=== PATIENT | female | born 1960 | race Caucasian/White ===

== ENCOUNTER → 2024-07-22 | Day surgery (SDC) | payer BC ==
[~2024-07-22] MED LIST: ACETAMINOPHEN 1000 MG/100 ML 100 ML IV ONE; ACETAMINOPHEN 1000 MG/100 ML IV PRN; ALENDRONAT70 MG/75 M; ALENDRONATE SOD70 MG PO; AMLODIPINE BESYL5 MG PO; ASPIRIN 325 MG TAB PO SCH; ASPIRIN81 MG PO; BUPIVACAINE/EPI 0.5% 30ML SDV-MPF INJ ONE; CAL PO; CELEBREX200 MG PO; CELECOXIB 100 MG CAP PO SCH; DIPHENHYDRAMINE HCL INJ 50 MG/ML VIAL IV PRN; DOCUSATE SODIUM 100 MG CAP PO PRN; FAMOTIDINE 20 MG/2 ML VIAL IV ONE; FENTANYL CITRATE/PF 100MCG/2 ML INJ ONE; HYDROCODONE/APAP 5MG-325MG TAB PO PRN; LACTATED RINGER'S 1,000 ML ONE; LIDOCAINE HCL 2% LOCAL INJ 5 ML SDV VIAL INJ ONE; LIPITOR20 MG PO; MAG PO; MIDAZOLAM HCL 2 MG/2 ML VIAL ONE; MONTELUKAST SOD10 MG PO; MULTI-VITAMIN1 EACH PO; NEURONTIN300 MG PO; ONDANSETRON HCL INJ 2MG/ML 2ML 2 MG/ML VIAL IV PRN; ONDANSETRON HCL INJ 2MG/ML 2ML 2 MG/ML VIAL ONE; PANTOPRAZOLE SO40 MG PO; PROPOFOL IV EMULSION 10 MG/ML 20 ML VIAL ONE; ROPIVACAINE/EPI/CLONIDINE/KET 50 ML SYRINGE INJ ONE; SEVOFLURANE INHAL SOLN 250 ML PEN BTL ONE; SODIUM CHLORIDE 0.9% 1000ML 1,000 ML IV SCH; TELMISARTAN-HC1 EACH PO; TIZANIDINE HCL4 M1 PO; VITAMIN B650 M1 PO; WELLBUTRIN XL300 MG PO; ZINC PO; [UNRECOGNIZED DRUG - OTHER] PO
[2024-07-22] MEDS: LACTATED RINGER'S 1,000 ML ONE (05:55)
[2024-07-22] MEDS: CEFAZOLIN SODIUM 2 GM ONE (06:27)
[2024-07-22] MEDS: DEXAMETHASONE SOD PHOS 10 MG/1 ML VIAL ONE (06:27)
[2024-07-22] MEDS: CELECOXIB 200 MG CAP ONE (06:27)
[2024-07-22] MEDS: GABAPENTIN 300 MG CAP ONE (06:27)
[2024-07-22] MEDS: HYDROCODONE/APAP 7.5MG-325MG 1 EA TAB PO PRN (09:26)
[2024-07-22 12:00] VITALS: BP 125/78; PULSE 85; RESP 16; O2SAT 97
== END | disposition home health service (06) ==
LOC: OR 05:37
PROVIDERS: ATTEND Specialist
DX: M17.11 Unilateral primary osteoarthritis, right knee (principal); M25.761 Osteophyte, right knee; I10 Essential (primary) hypertension; E78.00 Pure hypercholesterolemia, unspecified; K21.9 Gastro-esophageal reflux disease without esophagitis; N20.0 Calculus of kidney; F41.9 Anxiety disorder, unspecified; F17.210 Nicotine dependence, cigarettes, uncomplicated; Z88.2 Allergy status to sulfonamides; Z79.82 Long term (current) use of aspirin; Z79.899 Other long term (current) drug therapy
CPT/HCPCS: 27447; 73560; 86850; 86900; 97110; 97116; 97161; 97530; C1713 ×2; C1776 ×2; J0131; J1100; J1308; J2003; J2250; J2405; J2704; J3010; J7121

== ENCOUNTER 2024-12-02 05:27 | Observation (INO) | payer BC ==
[~2024-12-02] VITALS: Ht 152.4 cm; Wt 69.9 kg
[~2024-12-02 05:27] MED LIST changes: -ACETAMINOPHEN 1000 MG/100 ML 100 ML IV ONE; -ACETAMINOPHEN 1000 MG/100 ML IV PRN; -ASPIRIN 325 MG TAB PO SCH; -BUPIVACAINE/EPI 0.5% 30ML SDV-MPF INJ ONE; -CELECOXIB 100 MG CAP PO SCH; -DIPHENHYDRAMINE HCL INJ 50 MG/ML VIAL IV PRN; -DOCUSATE SODIUM 100 MG CAP PO PRN; -FAMOTIDINE 20 MG/2 ML VIAL IV ONE; -FENTANYL CITRATE/PF 100MCG/2 ML INJ ONE; -HYDROCODONE/APAP 5MG-325MG TAB PO PRN; -LACTATED RINGER'S 1,000 ML ONE; -LIDOCAINE HCL 2% LOCAL INJ 5 ML SDV VIAL INJ ONE; -MIDAZOLAM HCL 2 MG/2 ML VIAL ONE; -ONDANSETRON HCL INJ 2MG/ML 2ML 2 MG/ML VIAL IV PRN; -ONDANSETRON HCL INJ 2MG/ML 2ML 2 MG/ML VIAL ONE; -PROPOFOL IV EMULSION 10 MG/ML 20 ML VIAL ONE; -ROPIVACAINE/EPI/CLONIDINE/KET 50 ML SYRINGE INJ ONE; -SEVOFLURANE INHAL SOLN 250 ML PEN BTL ONE; -SODIUM CHLORIDE 0.9% 1000ML 1,000 ML IV SCH
[2024-12-02] MEDS ORDERED: PROPOFOL IV EMULSION 10 MG/ML 20 ML VIAL ONE (07:22)
[2024-12-02] MEDS ORDERED: FENTANYL CITRATE/PF 100MCG/2 ML INJ ONE ×2 (07:22→08:09)
[2024-12-02] MEDS ORDERED: SEVOFLURANE INHAL SOLN 250 ML PEN BTL ONE (07:22)
[2024-12-02] MEDS ORDERED: LIDOCAINE HCL 2% LOCAL INJ 5 ML SDV VIAL INJ ONE (07:22)
[2024-12-02] MEDS ORDERED: ACETAMINOPHEN 1000 MG/100 ML 100 ML IV ONE (07:22)
[2024-12-02] MEDS ORDERED: MIDAZOLAM HCL 2 MG/2 ML VIAL ONE (08:09)
[2024-12-02] MEDS ORDERED: FAMOTIDINE 20 MG/2 ML VIAL IV ONE (08:22)
[2024-12-02] MEDS ORDERED: ONDANSETRON HCL INJ 2MG/ML 2ML 2 MG/ML VIAL ONE (08:22)
[2024-12-02] MEDS ORDERED: ONDANSETRON HCL INJ 2MG/ML 2ML 2 MG/ML VIAL IV PRN (09:30)
[2024-12-02] MEDS ORDERED: DIPHENHYDRAMINE HCL INJ 50 MG/ML VIAL IV PRN (09:30)
[2024-12-02] MEDS ORDERED: DOCUSATE SODIUM 100 MG CAP PO PRN (09:30)
[2024-12-02] MEDS: FENTANYL CITRATE/PF 100MCG/2 ML INJ ONE (10:06)
[2024-12-02] MEDS ORDERED: LACTATED RINGER'S 1,000 ML ONE (13:21)
[2024-12-02] MEDS: CEFAZOLIN SODIUM 2 GM ONE (17:41)
[2024-12-02] MEDS: GABAPENTIN 300 MG CAP ONE (17:42)
[2024-12-02] MEDS: DEXAMETHASONE SOD PHOS 10 MG/1 ML VIAL ONE (17:42)
[2024-12-02] MEDS: CELECOXIB 200 MG CAP ONE (17:42)
[2024-12-02] MEDS: LACTATED RINGER'S 1,000 ML ONE (17:42)
[2024-12-02] MEDS: ROPIVACAINE 246.25 MG, EPINEPHRINE HCL 1:1000 1ML 0.5 MG, CLONIDINE HCL 0.08 MG, KETORO... INJ ONE (17:43)
[2024-12-02 17:44] VITALS: BP 116/56; PULSE 97; RESP 20; TEMP 98; O2SAT 97
[2024-12-02 17:48] VITALS: BP 116/56; PULSE 97; RESP 20; TEMP 98; O2SAT 97
[2024-12-02] MEDS: SODIUM CHLORIDE 0.9% 1000ML 1,000 ML IV SCH (18:13)
[2024-12-02] MEDS: ASPIRIN 325 MG TAB PO SCH (18:13)
[2024-12-02] MEDS: CELECOXIB 100 MG CAP PO SCH (18:14)
[2024-12-02 20:00] VITALS: BP 101/59; PULSE 88; RESP 18; TEMP 98.1; O2SAT 98
[2024-12-02] MEDS: HYDROCODONE/APAP 5MG-325MG TAB PO PRN (20:47)
[2024-12-03 00:25] VITALS: BP 115/67; PULSE 79; RESP 18; TEMP 98.1; O2SAT 96
[2024-12-03 04:19] VITALS: BP 116/68; RESP 20; TEMP 97.6; O2SAT 96
[2024-12-03] MEDS: GABAPENTIN 300 MG CAP PO SCH (04:48)
[2024-12-03] MEDS ORDERED: ASPIRIN81 MG PO (07:41)
[2024-12-03 08:06] VITALS: PULSE 84; RESP 18; O2SAT 97
[2024-12-03 08:23] VITALS: BP 120/64; PULSE 81; RESP 18; TEMP 97.7; O2SAT 98
[2024-12-03 08:25] VITALS: BP 120/64; PULSE 81; RESP 18; TEMP 97.7; O2SAT 98
[2024-12-03] MEDS: BUPROPION HCL 150 MG TABCR PO SCH (09:00)
[2024-12-03] MEDS: MONTELUKAST SODIUM 10 MG TAB PO SCH (09:17)
[2024-12-03] MEDS ORDERED: ACETAMINOPHEN 1000 MG/100 ML IV PRN (09:30)
[2024-12-03] MEDS: HYDROCODONE/APAP 7.5MG-325MG 1 EA TAB PO PRN (09:51)
[2024-12-03] MEDS ORDERED: ATORVASTATIN 20 MG TAB PO SCH (21:00)
[2024-12-03] MEDS ORDERED: PANTOPRAZOLE SOD 40 MG TABEC PO SCH (21:00)
== END 2024-12-03 10:14 | disposition home or self-care (01) ==
LOC: OR 05:27 → PACU V 16:00 → MED/SURG 17:22
PROVIDERS: ADMIT Specialist; ATTEND Specialist
DX: M17.12 Unilateral primary osteoarthritis, left knee (principal); Z96.651 Presence of right artificial knee joint; I10 Essential (primary) hypertension; E78.00 Pure hypercholesterolemia, unspecified; E78.5 Hyperlipidemia, unspecified; Z87.442 Personal history of urinary calculi; K21.9 Gastro-esophageal reflux disease without esophagitis; E66.9 Obesity, unspecified; E66.811 Obesity, class 1; Z68.30 Body mass index [BMI] 30.0-30.9, adult
CPT/HCPCS: 27447; 36415 ×2; 73560; 85014; 85018; 86850; 86900; 94799; 97116 ×3; 97161; 97530 ×2; C1713; C1776 ×4; G0378 ×2; J0131; J0169; J0690 ×2; J1100; J1308; J1885; J2003; J2250; J2405; J2704; J2795; J3010; J7030; J7121